=== PATIENT | female | born 1965 | race Caucasian/White ===

== ENCOUNTER 2016-05-29 14:15 | Outpatient (CLI) | payer OTHER | END 2016-05-29 14:16 | disposition home or self-care (01) | DX: R10.31 Right lower quadrant pain (principal) ==

== ENCOUNTER 2016-07-23 17:37 | Emergency (ER) | payer OTHER ==
[2016-07-23 17:45] VITALS: BP 112/74
--- NOTE | 2016-07-23 18:41 | XRAY Preliminary Report ---
Exam: XR Ankle 3 View LT IMPRESSION: Status post talocalcaneal fusion without evidence of acute fracture or dislocation. [facility] SITE ID: [id number]
--- NOTE | 2016-07-23 18:44 | XRAY Report ---
EXAM: LEFT ANKLE RADIOGRAPHY EXAM DATE: 07/23/2016 06:13 PM. CLINICAL HISTORY: Fell, twisted ankle. COMPARISON: None. TECHNIQUE: 3 views. FINDINGS: Bones: Status post 2 screw talocalcaneal fusion with subtalar joint still mostly visualized. No clear acute fracture. Joints: Status post talocalcaneal fusion. Soft Tissues: Plantar heel spur. Mild heterotopic ossification at the lateral margin of the talocalca lonnie joint. IMPRESSION: Status post talocalcaneal fusion without evidence of acute fracture or dislocation. [facility] Referring Provider Line: [phone] SITE ID: [id number]
--- NOTE | 2016-07-23 18:48 | XRAY Preliminary Report ---
Exam: XR Foot 3 View LT IMPRESSION: Status post talocalcaneal fusion without evidence of acute fracture. [facility] SITE ID: [id number]
--- NOTE | 2016-07-23 18:51 | XRAY Report ---
EXAM: LEFT FOOT RADIOGRAPHY EXAM DATE: 07/23/2016 06:13 PM. CLINICAL HISTORY: Fall, injury. COMPARISON: None. TECHNIQUE: 3 views. FINDINGS: Bones: Status post 2 screw talocalcaneal fusion with the joint space still visible. Plantar heel spur . Joints: Normal. No subluxations. Soft Tissues: Mild lateral soft tissue swelling with minimal calcification lateral to the calcaneus. IMPRESSION: Status post talocalcaneal fusion without evidence of acute fracture. [facility] Referring Provider Line: [phone] SITE ID: [id number]
--- NOTE | 2016-07-23 19:27 | ED Physician Documentation ---
PD HPI LOWER EXT INJURY - Stated complaint Stated Complaint: L FOOT INJURY - Chief complaint Chief Complaint: Trauma Ext - History obtained from History obtained from: Patient - History of Present Illness PD HPI LOW EXT INJURY LOCATION: Left (50-year-old woman with history of talocalcaneal fusion on the left twist her ankle in a fall today and has anterior left ankle and foot pain. She is able to walk but with difficulty and pain. No other injuries. Declines pain medication.) Review of Systems Constitutional: denies: Fever, Chills Nose: reports: Reviewed and negative Throat: reports: Reviewed and negative PD PAST MEDICAL HISTORY - Past Medical History Cardiovascular: High cholesterol Respiratory: Asthma Endocrine/Autoimmune: None GI: None : None HEENT: None Psych: Bipolar disorder, Post traumatic stress disorder Musculoskeletal: Osteoarthritis Derm: None - Past Surgical History Past Surgical History: Yes Ortho: Other HEENT: Tonsil/Adenoidectomy - Present Medications Home Medications: Ambulatory Orders Medication Instructions Recorded Confirmed Aripiprazole [Abilify] 2 mg PO DAILY 12/30/14 05/25/15 Gabapentin [Neurontin] 800 mg PO BID 12/30/14 05/25/15 Morphine ER [Ms Contin] 30 mg PO Q12H 12/30/14 05/25/15 Morphine Ir [Ms Ir] 15 mg PO Q6H 12/30/14 05/25/15 Sertraline [Zoloft] 200 mg PO DAILY 12/30/14 05/25/15 Simvastatin 5 mg PO DAILY 12/30/14 05/25/15 Albuterol Sulf [Ventolin Hfa] 1 puffs INH Q4HR 05/25/15 05/25/15 Fluticasone/Salmeterol [Advair 1 each IH DAILY 05/25/15 05/25/15 250-50 Diskus] - Allergies Allergies/Adverse Reactions: Allergies Allergy/AdvReac Type Severity Reaction Status Date / Time Penicillins Allergy Rash Verified 05/25/15 15:39 prochlorperazine maleate * Allergy Unknown Verified 05/25/15 15:40 [From Compazine] prochlorperazine AdvReac Unknown Verified 05/25/15 15:40 [From Compazine] prochlorperazine edisylate * AdvReac Unknown Verified 05/25/15 15:40 [From Compazine] - Social History Does the pt smoke?: Yes Smoking Status: Current every day smoker - Immunizations Immunizations are current?: Yes - POLST Patient has POLST: No PD ED PE NORMAL - Vitals Vital signs reviewed: Yes - General General: Alert and oriented X 3, No acute distress - Extremities Extremities: Other (Mod TTP anterior foot/midfoot TTP without deformity. NVI) - Neuro Neuro: Alert and oriented X 3, Normal speech - Psych Psych: Normal mood, Normal affect Results - Vitals Vitals: Vital Signs - 24 hr 07/23/16 17:42 Temperature 37.3 C Heart Rate 79 Respiratory 16 Rate Blood Pressure 112/74 O2 Saturation 100 Oxygen O2 Source Room air - Rads (name of study) L foot and ankle pain Radiology: EMP read contemporaneously (S/P talocalcaneal fusion without evidence of fracture.) Departure - Departure Disposition: 01 Home, Self Care Clinical Impression: Ankle sprain Qualifiers: Encounter type: initial encounter Involved ligament of ankle: unspecified ligament Laterality: left Qualified Code(s): S93.402A - Sprain of unspecified ligament of left ankle, initial encounter Foot sprain Qualifiers: Encounter type: initial encounter Laterality: left Qualified Code(s): S93.602A - Unspecified sprain of left foot, initial encounter Condition: Good Record reviewed to determine appropriate education?: Yes Instructions: ED Sprain Ankle W X Ray Follow-Up: [facility] [Provider Group] - Within 1 week Forms: Activity restrictions
== END 2016-07-23 19:45 | disposition home or self-care (01) ==
LOC: ED 17:37
DX: S93.402A Sprain of unspecified ligament of left ankle, initial encounter (principal); S93.602A Unspecified sprain of left foot, initial encounter; X50.0XXA Overexertion from strenuous movement or load, initial encounter; Y99.0 Civilian activity done for income or pay; E78.00 Pure hypercholesterolemia, unspecified; M19.90 Unspecified osteoarthritis, unspecified site; F17.200 Nicotine dependence, unspecified, uncomplicated
CPT/HCPCS: 1040M; 99283

== ENCOUNTER 2016-10-08 09:01 | Outpatient (CLI) | payer OTHER ==
[2016-10-08 19:19] LABS: ALBUMIN/GLOBULIN RATIO 1.4 (1.0-2.2); BILIRUBIN,TOTAL 0.6 mg/dL (0.2-1.0); BUN - BLOOD UREA NITROGEN 14 mg/dL (6-20); CALCIUM 9.2 mg/dL (8.5-10.3); CARBON DIOXIDE - CO2 28 mmol/L (21-32); CHLORIDE 106 mmol/L (101-111); CHOL/HDL RATIO 2.9 (<4.4); CHOLESTEROL 227 mg/dL; CREATININE 0.6 mg/dL (0.4-1.0); GFR - MDRD 107 (>89); GLUCOSE 84 mg/dL (70-100); HDL CHOLESTEROL 78 mg/dL; LDL/HDL RATIO 1.8 (<4.4); POTASSIUM 5.1 mmol/L (3.5-5.0); SODIUM 139 mmol/L (135-145); TOTAL PROTEIN 6.8 g/dL (6.7-8.2); TRIGLYCERIDES 58 mg/dL; VLDL CHOLESTEROL 12 mg/dL
== END 2016-10-08 09:02 | disposition home or self-care (01) ==
LOC: LAB.F 09:01
PROVIDERS: ATTEND Physician Assistant Medical
DX: E78.5 Hyperlipidemia, unspecified (principal); Z79.899 Other long term (current) drug therapy
CPT/HCPCS: 36415; 80053; 80061

== ENCOUNTER 2016-10-16 08:59 | Outpatient (CLI) | payer OTHER | END 2016-10-16 09:00 | disposition home or self-care (01) | LOC: LAB.F 08:59 | PROVIDERS: ATTEND Physician Assistant Medical | DX: E87.5 Hyperkalemia (principal) | CPT/HCPCS: 36415; 84132 ==

== ENCOUNTER 2017-04-30 17:03 | Emergency (ER) | payer OTHER ==
--- NOTE | 2017-04-30 17:58 | XRAY Report ---
EXAM: LEFT SHOULDER RADIOGRAPHY EXAM DATE: 04/30/2017 05:32 PM. CLINICAL HISTORY: [place] a pop. Left shoulder pain. COMPARISON: None. TECHNIQUE: 3 views. FINDINGS: Bones: Normal. No fracture or bone lesion. Joints: The glenohumeral and acromioclavicular joints are normal. Soft tissues: The visualized hemithorax is unremarkable. IMPRESSION: Normal shoulder radiography. [facility] Referring Provider Line: [phone] SITE ID: [id number]
[2017-04-30] MEDS ORDERED: METHOCARBAMOL 500 MG TABLET PO STA (19:14)
[2017-04-30] MEDS ORDERED: oxyCOD/ACETAMIN 5 MG/325 MG TABLET PO STA ×2 (19:14→19:15)
[2017-04-30] MEDS ORDERED: DEXAMETHASONE 10 MG/ML VIAL PO STA (19:15)
[2017-04-30] MEDS ORDERED: CHERRY SYRUP 10 ML UDC PO ONE (19:34)
--- NOTE | 2017-04-30 19:35 | ED Physician Documentation ---
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 Today at work, noted a pop and abrupt pain in the shoulder posterolaterally when just wrapping a piece of meat (not heavy and did not have abrupt movement).), Still present Improved by: No: Rest Worsened by: Moving, Palpating Associated symptoms: No: Weakness, Numbness Similar symptoms before: No diagnosis Review of Systems Constitutional: denies: Fever, Chills Skin: denies: Rash, Lesions Neurologic: denies: Focal weakness, Numbness PD PAST MEDICAL HISTORY - Past Medical History Cardiovascular: High cholesterol Respiratory: Asthma Endocrine/Autoimmune: None GI: None : None HEENT: None Psych: Bipolar disorder, Post traumatic stress disorder Musculoskeletal: Osteoarthritis Derm: None - Past Surgical History Past Surgical History: Yes Ortho: Other HEENT: Tonsil/Adenoidectomy - Present Medications Home Medications: Ambulatory Orders Medication Instructions Recorded Confirmed Aripiprazole [Abilify] 2 mg PO DAILY 12/30/14 04/30/17 Gabapentin [Neurontin] 800 mg PO BID 12/30/14 04/30/17 Morphine ER [Ms Contin] 30 mg PO Q12H 12/30/14 04/30/17 Morphine Ir [Ms Ir] 15 mg PO Q6H 12/30/14 04/30/17 Sertraline [Zoloft] 200 mg PO DAILY 12/30/14 04/30/17 Simvastatin 5 mg PO DAILY 12/30/14 04/30/17 Albuterol Sulf [Ventolin Hfa] 1 puffs INH Q4HR 05/25/15 04/30/17 Fluticasone/Salmeterol [Advair 1 each IH DAILY 05/25/15 04/30/17 250-50 Diskus] Dexamethasone [Decadron] 4 mg PO DAILY #5 tablet 04/30/17 Methocarbamol [Robaxin] 500 mg PO Q6H PRN #25 tablet 04/30/17 - Allergies Allergies/Adverse Reactions: Allergies Allergy/AdvReac Type Severity Reaction Status Date / Time Penicillins Allergy Rash Verified 04/30/17 17:19 prochlorperazine maleate * Allergy Unknown Verified 04/30/17 17:19 [From Compazine] prochlorperazine AdvReac Unknown Verified 04/30/17 17:19 [From Compazine] prochlorperazine edisylate * AdvReac Unknown Verified 04/30/17 17:19 [From Compazine] - Social History Does the pt smoke?: Yes Smoking Status: Current every day smoker - Immunizations Immunizations are current?: Yes - POLST Patient has POLST: No PD ED PE NORMAL - Vitals Vital signs reviewed: Yes - General General: Alert and oriented X 3, Well developed/nourished, Other (she seems uncomfortable with any ROM of the shoulder. Smell of alcohol on her breath. ) - Neck Neck: Supple, no meningeal sign, No bony TTP, No adenopathy - Cardiac Cardiac: RRR, No murmur - Respiratory Respiratory: Clear bilaterally - Derm Derm: Normal color, Warm and dry, No rash - Extremities Extremities: No deformity, Other (left shoulder with general tenderness at AC/ lateral and posteriorly. Pain with any ROM but able to do all motions against resistance. Flinches with pain on the movements. No noted deformity of the shoulder. ). No: Normal ROM s pain - Neuro Neuro: Alert and oriented X 3, No motor deficit, No sensory deficit Results - Vitals Vitals: Oxygen O2 Source Room air - Rads (name of study) left shoulder Radiology: Prelim report reviewed (normal xray) PD MEDICAL DECISION MAKING - ED course Complexity details: reviewed results (no fractures on xray), considered differential, d/w patient Departure - Departure Disposition: 01 Home, Self Care Clinical Impression: Left shoulder pain Qualifiers: Chronicity: acute Qualified Code(s): M25.512 - Pain in left shoulder Injury of left rotator cuff Qualifiers: Encounter type: initial encounter Qualified Code(s): S46.002A - Unspecified injury of muscle(s) and tendon(s) of the rotator cuff of left shoulder, initial encounter Condition: Stable Record reviewed to determine appropriate education?: Yes Instructions: ED Tendinitis Rotator Cuff, ED Sprain Shoulder Follow-Up: Neville,Debbi L, PA-C [Primary Care Provider] - Prescriptions: Dexamethasone [Decadron] 4 mg PO DAILY #5 tablet Methocarbamol [Robaxin] 500 mg PO Q6H PRN #25 tablet PRN Reason: Spasms Comments: I presume your shoulder problem is a partial tear of her rotator cuff although it may be part of the shoulder cartilage injured instead. He went to be careful not to have the shoulder stiffen up on you so use a sling for comfort with gentle range of motion several times a day so as to keep it from getting stiff for healing wrong. However the same can be used short-term for comfort of reduced motion. Continue current medications. Add Decadron as an anti- inflammatory for 5 more days. They can also be some spasming of the shoulder girdle muscles and so use Robaxin if needed for spasms. Follow-up with your primary care in about 5-7 days, call for an appointment. Forms: Activity restrictions Discharge Date/Time: 04/30/17 19:44
[2017-04-30 19:46] VITALS: BP 103/8
== END 2017-04-30 19:44 | disposition home or self-care (01) ==
LOC: ED 17:03
DX: M25.512 Pain in left shoulder (principal); X50.9XXA Other and unspecified overexertion or strenuous movements or postures, initial encounter; Y99.0 Civilian activity done for income or pay; E78.00 Pure hypercholesterolemia, unspecified; F17.200 Nicotine dependence, unspecified, uncomplicated
CPT/HCPCS: 1040M; 73030; 99283; A9270

== ENCOUNTER 2017-08-14 13:45 | Outpatient (CLI) | payer OTHER ==
[~2017-08-14 13:45] MED LIST: GADOPENTETATE DIMEGLUMINE 5 ML VIAL IVP ONE; IOTHALAMATE MEGLUMINE 50 ML VIAL ONE
[2017-08-14] MEDS ORDERED: GADOPENTETATE DIMEGLUMINE 5 ML VIAL IVP ONE (14:34)
[2017-08-14] MEDS ORDERED: IOTHALAMATE MEGLUMINE 50 ML VIAL IVP ONE (14:34)
[2017-08-14] MEDS ORDERED: BUFFERED LIDOCAINE 10 ML SYRINGE IU ONE (14:34)
--- NOTE | 2017-08-14 16:12 | XRAY Report ---
FLUOROSCOPICALLY GUIDED LEFT SHOULDER INJECTION FOR MR ARTHROGRAM: 08/14/2017 CLINICAL INDICATION: Strain, pain. FINDINGS: Following obtaining informed consent, the patient's left shoulder was prepped and draped in the usual sterile fashion. The skin and soft tissues were anesthetized with lidocaine. A spinal needle was inserted into the left glenohumeral joint, and following confirmation of needle positioning, a combination of iodinated contrast, dilute gadolinium, and lidocaine was injected intraarticularly. The patient tolerated the procedure well. No immediate complications. Spot image reveals no evidence of contrast extravasation. IMPRESSION: SUCCESSFUL LEFT SHOULDER INJECTION FOR MR ARTHROGRAM. FLUOROSCOPY TIME: 29 seconds; 1 spot image obtained. TD: 08/14/2017 16:12
--- NOTE | 2017-08-14 19:07 | MRI Report ---
EXAM: LEFT SHOULDER MRI ARTHROGRAM WITH CONTRAST EXAM DATE: 08/14/2017 03:09 PM. CLINICAL HISTORY: REPETITIVE STRAIN INJURY OF LEFT SHOULDER. COMPARISON: Left shoulder 3 views 04/30/2017.. TECHNIQUE: Multiplanar, multisequence T1-weighted and fluid-sensitive sequences of the shoulder after an arthrographic injection of dilute gadolinium, dictated under a separate exam. Other: None. FINDINGS: Acromioclavicular Region: The acromion is type II. Mild arthrosis acromioclavicular joint. Small 3 mm spur inferior aspect and distal clavicle acromioclavicular joint The coracoacromial and coracoclavic ular ligaments are intact. There is no contrast or fluid in the subacromial/subdeltoid bursa. Glenohumeral Region: No subluxation. No loose bodies. The articular cartilage is unremarkable. The gl enohumeral ligaments and joint capsule are unremarkable. Bone Marrow: No fracture, marrow edema or bone lesions. Subcortical 3 mm cyst in the posterior greate r tuberosity. Labrum: The labrum is unremarkable. Hypoplasia anterior superior labrum and enlarged anterior glenohu meral ligament consistent with Shruthi complex. Probable small anterior superior sub-labral foramen. Biceps Tendon: The long head of the biceps tendon and biceps jose alfredo are intact. Musculature/Rotator Cuff: The subscapularis, supraspinatus, infraspinatus, and teres minor tendons ar e intact. No edema or fatty atrophy. Other: The subcutaneous tissues are unremarkable. IMPRESSION: No MRI abnormalities in the shoulder. [facility]CULOSKELET[facility] Referring Provider Line: [phone] SITE ID: [id number]
== END 2017-08-14 13:46 | disposition home or self-care (01) ==
LOC: DI 13:45
PROVIDERS: ATTEND Physician Assistant Medical
DX: M70.912 Unspecified soft tissue disorder related to use, overuse and pressure, left shoulder (principal)
CPT/HCPCS: 23350; 73222; 77002; Q9961

== ENCOUNTER 2017-11-15 16:02 | Outpatient (CLI) | payer MEDICAID ==
--- NOTE | 2017-11-16 15:39 | XRAY Report ---
Procedure Date: 11/15/2017 Accession Number: [id number] / [id number] Procedure: XRS - Foot 3 View LT CPT Code: FULL RESULT: EXAM: RIGHT/LEFT FOOT RADIOGRAPHY EXAM DATE: 11/15/2017 04:17 PM. CLINICAL HISTORY: FOOT PAIN, LEFT. COMPARISON: 08/19/2016. TECHNIQUE: 3 views. FINDINGS: Surgical screw seen within the calcaneus. No evidence for acute fracture or dislocation. IMPRESSION: No evidence for acute osseous injury. [facility]
== END 2017-11-15 16:03 | disposition home or self-care (01) ==
LOC: DI.S 16:02
PROVIDERS: ATTEND Physician Assistant Medical
DX: M79.672 Pain in left foot (principal)